=== PATIENT | male | born 1995 | race Caucasian/White ===

== ENCOUNTER 2022-01-24 03:45 | Emergency (ER) | payer OTHER | END 2022-01-24 04:35 | disposition left against medical advice (07) | LOC: VM.ED 03:45 | DX: F10.129 Alcohol abuse with intoxication, unspecified (principal); F17.210 Nicotine dependence, cigarettes, uncomplicated; V48.5XXA Car driver injured in noncollision transport accident in traffic accident, initial encounter | CPT/HCPCS: 99283 ==